=== PATIENT | female | born 1970 | race Caucasian/White ===

== ENCOUNTER 2017-10-14 14:13 | Emergency (ER) | payer BC ==
--- NOTE | 2017-10-14 14:41 | Emergency Department Record ---
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 She was followed by a consulting networking engineer Dr Connell. She states it was not fixed or improved. She went to see her PCP for a new referral. She reports she saw a new PA who was not helpful so she immediately left without another referral. She presents to the ER seeking help and a referral for her chronic finger deformity. No pus, no redness, no injury. No changes from her chronic condition. -: Year(s) (1) -: Yes Arthralgia Radiation: Distal Quality: Aching Consistency: Constant Improves with: Nothing Worsens with: Nothing Associated Symptoms: Denies other symptoms - Related Data Home Medications Medication Instructions Recorded Confirmed Last Taken No Home Med [NO HOME MEDS] 10/14/17 10/14/17 Unknown Allergies Allergy/AdvReac Type Severity Reaction Status Date / Time Penicillins Allergy ANAPHYLAXIS Verified 10/14/17 14:41 Review of Systems Constitutional: Denies: Chills, Fever Eyes: Denies: Eye discharge ENT: Denies: Congestion, Throat pain Respiratory: Denies: Cough Cardiovascular: Denies: Chest pain, Syncope Gastrointestinal: Denies: Diarrhea, Nausea, Vomiting Genitourinary: Denies: Dysuria Musculoskeletal: Reports: As per HPI, Arthralgia. Denies: Back pain Skin: Denies: Bruising, Change in color, Rash Neurological: Denies: Headache Psychiatric: Denies: Anxiety Hematological/Lymphatic: Denies: Blood Clots, Easy bleeding, Easy bruising, Swollen glands Physical Exam - General General Appearance: Alert, Oriented x3, Cooperative, No acute distress Limitations: No limitations - Head Head exam: Atraumatic, Normocephalic, Normal inspection - Eye Eye exam: Normal appearance. negative: Conjunctival injection - ENT ENT exam: Normal exam Ear exam: Normal external inspection Nasal Exam: Normal inspection Mouth exam: Normal external inspection - Neck Neck exam: Normal inspection - Rectal Rectal exam: Deferred - exam: Deferred - Extremities Extremities exam: negative: Normal inspection Image of Finger Tip: 1 - chronic thickend raised nail that comes to a point, no redness, no pus, no signs of infection - Neurological Neurological exam: Alert, Oriented X3 - Psychiatric Psychiatric exam: Normal affect, Normal mood - Skin Skin exam: Dry, Intact, Normal color, Warm Course - Reevaluation(s) Reevaluation #1: The patient requested the nail be trimmed I explained for the chronic uncomplicated condition she will be referred to a hand surgeon She was provided names to call of hand surgeons She was encouraged to call her PCP again to assist with referrals 10/14/17 19:18 Disposition Disposition: Discharge Clinical Impression: Pincer nail deformity Disposition: Home, Self-Care Condition: (1) Good Additional Instructions: Call the numbers provided for a Hand Surgery referral for your chronic Pincer Fingernail Referrals: VERONICA CARRERA M.D. [MEDICAL DOCTOR] - MOHAN SYKES [MEDICAL DOCTOR] - Forms: Patient Portal Access Time of Disposition: 14:40 Quality - Quality Measures Quality Measures: N/A - Blood Pressure Screening Does Patient Have Any of the Following: No Blood Pressure Classification: Hypertensive Reading Systolic Measurement: 150 Diastolic Measurement: 97 Screening for High Blood Pressure: < Pre-Hypertensive BP, F/U Documented > [ [id number]] Pre-Hypertensive Follow-up Interventions: Referral to alternative/primary care provider.
== END 2017-10-14 15:08 | disposition home or self-care (01) ==
LOC: ER 14:13
DX: L60.8 Other nail disorders (principal)
CPT/HCPCS: 99282